=== PATIENT | female | born 1990 | race Caucasian/White ===

== ENCOUNTER 2022-03-28 04:16 | Outpatient (CLI) | payer BC, SELFPAY ==
[2022-03-28 08:27] LABS: Absolute Basophil Count 0.07 10^3/uL (0.0-0.2); Absolute Eosinophil Count 0.26 10^3/uL (0.0-0.7); Absolute Lymphocyte Count 1.73 10^3/uL (1.2-3.4); Absolute Monocyte Count 0.44 10^3/uL (0.1-0.8); Absolute Neutrophil Count 2.45 10^3/uL (1.2-6.7); Basophils % 1.4; Eosinophils % 5.3; HGB 14.5 g/dL (11.2-15.7); Lymphocytes % 34.9; MCH 30.5 pg (27.0-33.0); MCHC 33.7 % (32.0-36.0); MCV 90 fL (80-95); MPV 10.7 fL (8.0-11.0); Monocytes % 8.9; Neutrophils % 49.5; Platelet Count 214 10^3/uL (130-400); RBC 4.76 10^6/uL (3.93-5.22); RDW-SD 40.2 fL; WBC 4.95 10^3/uL (4.4-10.8)
[2022-03-28 09:03] LABS: ALT 24 U/L (14-59); AST 18 U/L (15-37); Albumin 3.9 g/dL (3.4-5.0); Alkaline Phosphatase 53 U/L (46-116); BUN 15 mg/dL (7-18); Bilirubin, Total 0.5 mg/dL (0.2-1.0); Calcium 9.2 mg/dL (8.5-10.1); Calculated LDL 105 mg/dL (<100); Chloride 105 mmol/L (98-107); Cholesterol 177 mg/dL (<200); Estimated GFR 77.72 (mL/min/1.73m2); Glucose 88 mg/dL (74-106); HDL Cholesterol 66 mg/dL (40-60); Sodium 140 mmol/L (136-145); TSH (W/Ref FT4) 0.89 uIU/mL (0.36-3.74); Total Protein 7.7 g/dL (6.4-8.2); Triglyceride 31 mg/dL (<150)
[2022-03-28 17:59] LABS: CRP, High Sensitivity 14.65 mg/L (See Note)
[2022-03-28 23:00] LABS: FSH 2.4 mIU/mL (See Note)
[2022-03-29 09:54] LABS: HIV-1/2 Ag & Ab Screen Negative (Negative)
[2022-03-29 09:57] LABS: Lyme Ab w Rflx to Lyme Confirm Negative (Negative)
[2022-03-30 17:21] LABS: Anaplasma phagocytophilum Negative (Negative); B. miyamotoi PCR Negative (Negative); Babesia divergens/MO-1 Negative (Negative); Babesia duncani Negative (Negative); Babesia microti Negative (Negative); Ehrlichia chaffeensis Negative (Negative); Ehrlichia ewingii/canis Negative (Negative); Ehrlichia muris eauclairensis Negative (Negative)
[2022-04-09 09:48] LABS: Interferon gamma <4.2 pg/mL (<=4.2)
== END 2022-03-28 04:17 | disposition home or self-care (01) ==
LOC: LBO 04:16
PROVIDERS: PCP Nurse Practitioner Family; Visit Provider Nurse Practitioner Family
DX: R61 Generalized hyperhidrosis
CPT/HCPCS: 36415; 80053; 80061; 83520; 86141; 87389; 87798; 83001; 84443; 85025; 86618

== ENCOUNTER 2022-05-11 01:54 | Outpatient (CLI) | payer BC, SELFPAY ==
[2022-05-11 10:56] LABS: ESR 2 mm/hr (0-20)
[2022-05-11 11:01] LABS: Bilirubin Negative (Negative); Blood Moderate (Negative); Clarity Clear (Clear); Glucose Negative (Negative); Ketones Negative (Negative); Leukocyte Esterase Negative (Negative); Nitrite Negative (Negative); Specific Gravity 1.025 (1.005-1.025); Urobilinogen 0.2 mg/dL (Up to 0.2)
[2022-05-11 11:11] LABS: Bacteria Negative HPF (Negative); C & S Indicated? No; Casts Negative LPF (Negative); Crystals Negative HPF (Negative); Epithelial Cells Negative HPF (Negative); Mucus Negative (Negative); WBC 0-2 HPF (0-5)
[2022-05-11 20:03] LABS: Rheumatoid Factor <8.6 IU/mL (<12.0)
[2022-05-14 16:11] LABS: ANA Interpretation Negative (Negative)
== END 2022-05-11 01:55 | disposition home or self-care (01) ==
PROVIDERS: PCP Nurse Practitioner Family; Visit Provider Nurse Practitioner Family
DX: R61 Generalized hyperhidrosis (principal); Z00.00 Encounter for general adult medical examination without abnormal findings; R82.998 Other abnormal findings in urine
CPT/HCPCS: 36415; 85652; 86141; 87040; 81003; 81015; 86038; 86431

== ENCOUNTER 2022-05-11 19:53 | Outpatient (CLI) | payer BC, SELFPAY ==
--- NOTE | 2022-05-11 13:45 | DI.RAD_ITS ---
Exam(s) XR CHEST 2V PA LATERAL EXAM: XR CHEST 2V PA LATERAL CLINICAL HISTORY: evaluate pathology COUGH R05.9 TECHNIQUE: 2D digital imaging was performed of the chest. Two images were obtained. PA and lateral views were obtained. COMPARISON: No exams were available for comparison FINDINGS: MEDIASTINUM: Normal. HEART: Normal. PULMONARY VASCULATURE: Normal. LUNGS: Clear. PLEURAL SPACE: No pleural effusion or pneumothorax. BONE:Within normal limits for the patient's age. OTHER FINDINGS:Normal. IMPRESSION: No acute pulmonary findings. DATA REPOSITORY: RADIATION DOSE DELIVERED:
== END 2022-05-11 20:13 ==
LOC: DI 19:53
PROVIDERS: PCP Nurse Practitioner Family; Visit Provider Nurse Practitioner Family
DX: R05.8 Other specified cough (principal)
CPT/HCPCS: 71046